=== PATIENT | male | born 1980 | race Two or more races ===

== ENCOUNTER 2020-10-26 06:08 | Emergency (ER) | payer SELFPAY ==
[~2020-10-26] VITALS: Ht 170.2 cm; Wt 96.8 kg
[2020-10-26 06:10] VITALS: BP 126/82
--- NOTE | 2020-10-26 06:26 | NUR ---
pt presents to ed with chest pain. pt states he did have heart burn this morning and when he wakes up he sometimes feels out of breath. pt states he does snore. erp in room. pt in gown on gurney and placed on continuous monitioring
--- NOTE | 2020-10-26 06:47 | NUR ---
GAVE REPORT TO MARC CHAVEZ AND MARC FRANKLIN
--- NOTE | 2020-10-26 06:56 | NUR ---
report received from marko thorpe
[2020-10-26 07:03] LABS: TROPONIN I < 0.015 ng/mL (0.000-0.045)
--- NOTE | 2020-10-26 07:15 | NUR ---
pt a&o, resps even and unlabored, vss, nadn. awaiting cxr results and dispo
--- NOTE | 2020-10-26 07:35 | NUR ---
discharge instructions reviewed, pt educated on prescription, follow-up, and return criteria, verbalized understanding. pt a&o, resps even and unlabored, vss, nadn. ambulatory to discharge with steady gait.
== END 2020-10-26 07:38 | disposition home or self-care (01) ==
LOC: ED 07:32
DX: R07.2 Precordial pain (principal); K21.9 Gastro-esophageal reflux disease without esophagitis; R94.31 Abnormal electrocardiogram [ECG] [EKG]
CPT/HCPCS: 36415; 71045; 84484; 93005; 99285